=== PATIENT | female | born 1930 | race Caucasian/White ===

== ENCOUNTER 2018-10-07 12:29 | Emergency (ER) | payer OTHER, BC ==
[2018-10-07 13:01] VITALS: BMI 22.3
--- NOTE | 2018-10-07 13:25 | PDOC ---
History of Present Illness - General Chief Complaint: Injury Stated Complaint: FALL Time Seen by Provider: 10/07/18 13:24 - History of Present Illness Initial Comments: 10/07/18 13:35 Ms. Pelaez is an 88 yo female w/ pmh of HTN, GERD, and recent full hip replacement 4 weeks ago for "wear and tear" who presents for evaluation after fall today. Patient reports she tripped over the carpet and fell backwards, landing on her bottom as well as hitting her head. She is adamant that she did not feel week or dizzy before the incident and did not lose consciousness. Currently complaining of L hip pain and is having difficulty moving L leg. The patient denies chest pain, shortness of breath, headache and dizziness. Denies fever, chills, nausea, vomit, diarrhea and constipation. Denies dysuria, frequency, urgency and hematuria. Past History - Past Medical History Allergies/Adverse Reactions: Allergies Allergy/AdvReac Type Severity Reaction Status Date / Time No Known Allergies Allergy Verified 10/07/18 12:55 Home Medications: Ambulatory Orders Losartan Potassium [Cozaar -] 50 mg PO DAILY 10/07/18 Metoprolol Tartrate 50 mg PO DAILY 10/07/18 Pantoprazole Sodium 40 mg PO 10/07/18 Silver Sulfadiazine 1% Top Cr [Silvadene -] 1 applic TP DAILY 10/07/18 COPD: No HTN: Yes - Suicide/Smoking/Psychosocial Hx Smoking History: Never smoked Have you smoked in the past 12 months: No Information on smoking cessation initiated: No Hx Alcohol Use: No Drug/Substance Use Hx: No Review of Systems - Review of Systems Comments:: 10/07/18 13:40 GENERAL/CONSTITUTIONAL: No fever or chills. No weakness. HEAD, EYES, EARS, NOSE AND THROAT: No change in vision. No ear pain or discharge. No sore throat. CARDIOVASCULAR: No chest pain or shortness of breath RESPIRATORY: No cough, wheezing, or hemoptysis. GASTROINTESTINAL: No nausea, vomiting, diarrhea or constipation. GENITOURINARY: No dysuria, frequency, or change in urination. MUSCULOSKELETAL: Left hip TTP w/ L leg pain s/p fall. No neck or back pain. SKIN: No rash NEUROLOGIC: No headache, vertigo, loss of consciousness, or change in strength/ sensation. ENDOCRINE: No increased thirst. No abnormal weight change HEMATOLOGIC/LYMPHATIC: No anemia, easy bleeding, or history of blood clots. ALLERGIC/IMMUNOLOGIC: No hives or skin allergy. *Physical Exam - Vital Signs Last Vital Signs Temp Pulse Resp BP Pulse Ox 98.6 F 112 H 20 176/77 H 99 10/07/18 12:58 10/07/18 12:58 10/07/18 12:58 10/07/18 12:58 10/07/18 12:58 - Physical Exam Comments: 10/07/18 13:40 GENERAL: +Patient visibly anxious however awake, alert, and fully oriented, in no acute distress HEAD: No signs of trauma, normocephalic, atraumatic EYES: PERRLA, EOMI, sclera anicteric, conjunctiva clear ENT: Auricles normal inspection, hearing grossly normal, nares patent, oropharynx clear without exudates. Moist mucosa NECK: Normal ROM, supple, no lymphadenopathy, JVD, or masses LUNGS: No distress, speaks full sentences, clear to auscultation bilaterally HEART: Regular rate and rhythm, normal S1 and S2, no murmurs, rubs or gallops, peripheral pulses normal and equal bilaterally. ABDOMEN: Soft, nontender, normoactive bowel sounds. No guarding, no rebound. No masses EXTREMITIES: +LLE internall rotated. L hip TTP. Unable to participate in ROM testing on L side or otherwise move limb. Otherwise normal range of motion, no edema. No clubbing or cyanosis. NEUROLOGICAL: Cranial nerves II through XII grossly intact. Normal speech, no focal sensorimotor deficits SKIN: Warm, Dry, normal turgor, no rashes or lesions noted. ED Treatment Course - LABORATORY CBC & Chemistry Diagram: 10/07/18 14:30 10/07/18 14:30 Medical Decision Making - Medical Decision Making 10/07/18 16:23 Ms. Pelaez is an 88 yo female w/ pmh as described who presents for evaluation of L hip pain s/p fall. Patient evaluated with labs as below and noted to have UTI. Patient X-Ray revealed dislocation of replaced hip. Discussed with patient and family who request transfer to [facility] for further evaluation and care. Contacted surgeon (Dr. Brown) for transfer. 10/07/18 16:[address] Brown who requests transfer to [place] for reduction/further care. Dr. Brown will call to alert of arrival of patient. Hospital paged. 10/07/18 16:46 Discussed with Jensen attending; patient accepted for transfer and reduction. Accepting physician: matteo estes. Patient will be transferred. 10/07/18 19:01 Patient given 2mg morphine IV for pain control prior to transfer. *DC/Admit/Observation/Transfer Diagnosis at time of Disposition: Hip dislocation, left Qualifiers: Encounter type: initial encounter Qualified Code(s): S73.005A - Unspecified dislocation of left hip, initial encounter - Discharge Dispostion Disposition: TRANSFER ACUTE CARE/OTHER HOSP - Referrals Referrals: Rashi Khan [Primary Care Provider] - - Patient Instructions - Post Discharge Activity
[2018-10-07] MEDS ORDERED: ACETAMINOPHEN 1000 MG/100 ML VIAL (NON FORMULARY) IVPB ONE (13:34)
[2018-10-07] MEDS ORDERED: SODIUM CHLORIDE 500 ML IV STA (14:21)
[2018-10-07 14:49] LABS: BASO % 0.6 % (0-2.0); EOS % 0.5 % (0-4.5); HEMATOCRIT 37.5 % (32.4-45.2); HEMOGLOBIN 12.6 GM/dL (10.7-15.3); LYMPH % 20.8 % (8-40); MCH 29.4 pg (25.7-33.7); MCHC 33.7 g/dl (32.0-36.0); MEAN CELL VOLUME 87.3 fl (80-96); MEAN PLT VOLUME 7.1 fl (7.5-11.1); NEUT % 69.1 % (42.8-82.8); PLATELET COUNT 529 K/MM3 (134-434); RBC 4.29 M/mm3 (3.60-5.2); RDW 16.3 % (11.6-15.6); WHITE BLOOD COUNT 8.3 K/mm3 (4.0-10.0)
[2018-10-07 14:52] LABS: EPI CELLS 1.1 /HPF (0-5/HPF); HYALINE CASTS 12 /lpf (0-8); PH,URINE 7.5 (5.0-8.0); URINE APPEARANCE CLOUDY; URINE BACTERIA 512.4 /hpf (NEGATIVE); URINE BILIRUBIN NEGATIVE (NEGATIVE); URINE COLOR YELLOW; URINE GLUCOSE (UA) NEGATIVE (NEGATIVE); URINE KETONE NEGATIVE (NEGATIVE); URINE LEUK ESTERASE 2+ (NEGATIVE); URINE NITRITE NEGATIVE (NEGATIVE); URINE PROTEIN TRACE (NEGATIVE); URINE RBC 2 /hpf (0-4); URINE UROBILINOGEN 0.2 mg/dL (0.2-1.0); URINE WBC 157 /hpf (0-5)
[2018-10-07 15:06] LABS: INR 1.08 (0.83-1.09); PROTHROMBIN TIME (PATIENT) 12.7 SEC (9.7-13.0)
[2018-10-07 15:08] LABS: ACTIVATED PTT 33.3 SECONDS (25.2-36.5)
[2018-10-07 15:27] LABS: ALBUMIN 3.1 g/dl (3.4-5.0); ALK PHOS 96 U/L (45-117); ANION GAP 10 MMOL/L (8-16); BILIRUBIN,TOTAL 0.8 mg/dL (0.2-1); BLOOD UREA NITROGEN 10.9 mg/dL (7-18); CALCIUM 8.6 mg/dL (8.5-10.1); CHLORIDE 102 mmol/L (98-107); CO2 26 mmol/L (21-32); CREATININE 0.8 mg/dL (0.55-1.3); GLUCOSE,RANDOM 98 mg/dL (74-106); POTASSIUM 3.2 mmol/L (3.5-5.1); SGOT/AST 29 U/L (15-37); SGPT/ALT 18 U/L (13-61); SODIUM 138 mmol/L (136-145); TOT PROT 6.8 g/dl (6.4-8.2)
[2018-10-07] MEDS ORDERED: CEFTRIAXONE 1,000 MG in DEXTROSE 5%-WATER - 50 ML IVPB ONE (15:46)
--- NOTE | 2018-10-07 15:49 | PDOC ---
Documentation entered by Amanda Vang SCRIBE, acting as scribe for Tim Khalil MD. Tim Khalil MD: This documentation has been prepared by the scribe, Amanda Vang SCRIBE, under my direction and personally reviewed by me in its entirety. I confirm that the documentation accurately reflects all work, treatment, procedures, and medical decision making performed by me. Attending Attestation - Resident Resident Name: Balwinder Gutierrez - ED Attending Attestation I have performed the following: I have examined & evaluated the patient, The case was reviewed & discussed with the resident, I agree w/resident's findings & plan, Exceptions are as noted - HPI HPI: 10/07/18 13:50 The patient is an 88-year-old female, with a past medical history of HTN, GERD, s/p LT hip replacement - 4 weeks ago. who presents to the ED s/p mechanical fall last night. Patient states that she tripped over the carpet, falling backwards on to her bottom. She reports head trauma, but denies any loss of consciousness. The patient was on the ground for about 12 hours until her family arrived in the morning. She is complaining of LT hip pain. The patient denies any fever, chills, nausea, vomiting, diarrhea, constipation or abdominal pain. Denies any chest pain, palpitations, or shortness of breath. Denies any urinary symptoms. Allergies: NKA Surgical History: LT hip replacement - 4 weeks ago Social History: None reported. PCP: Dr. Khan - Physicial Exam PE: 10/07/18 13:51 Patient is awake and alert, well-nourished, in mild distress Normocephalic and atraumatic Neck is supple without midline tenderness to palpation CTA RRR Abdomen is soft, nontender, nondistended Pelvis is stable Left lower extremity is shortened and externally rotated with tenderness along the proximal femur Neurovascularly intact distally - Medical Decision Making 10/07/18 15:48 Patient is an 88-year-old female, status post left total hip 4 weeks previously at [facility] presents to the ER 12 hours after a mechanical fall with a deformed left lower extremity. Will rule out intracranial pathology with CT of head. Will obtain pelvic and hip x-rays of the left leg. Will treat rhabdomyolysis and UTI as necessary. Will consult urology. Possible transfer to [facility] if hip dislocation is identified.
[2018-10-07] MEDS ORDERED: CEFTRIAXONE 1 GM/50 ML BAG ONE (16:51)
[2018-10-07] MEDS ORDERED: morphine CARPU-JECT 2 MG/1 ML DISP.SYRIN IVPUSH ONE (18:25)
[2018-10-07] MEDS ORDERED: MORPHINE SULFATE 2 MG/ML VIAL ONE (18:34)
[2018-10-07 20:12] VITALS: BP 164/79; PULSE 120; TEMP 98.5
== END 2018-10-07 20:26 | disposition short-term general hospital (02) ==
LOC: JER 12:29
PROC: 3E033NZ Introduction of Analgesics, Hypnotics, Sedatives into Peripheral Vein, Percutaneous Approach (ICD-10-PCS; principal; 2018-10-07)
PROC: 3E03329 Introduction of Other Anti-infective into Peripheral Vein, Percutaneous Approach (ICD-10-PCS; 2018-10-07)
PROC: 3E0337Z Introduction of Electrolytic and Water Balance Substance into Peripheral Vein, Percutaneous Approach (ICD-10-PCS; 2018-10-07)
DX: S73.005A Unspecified dislocation of left hip, initial encounter (principal); I10 Essential (primary) hypertension; K21.9 Gastro-esophageal reflux disease without esophagitis
CPT/HCPCS: 36415; 73523-TC-FY; 73552-TC-LT-FY; 80053; 81003; 82550; 82553; 84484; 85025; 85610; 85730; 87077; 87086; 87186; 99284-25; J0131; J7030